=== PATIENT | female | born 1990 | race African-American/Black ===

== ENCOUNTER 2018-03-31 23:37 | Emergency (ER) | payer OTHER ==
[~2018-03-31] VITALS: Ht 180.3 cm; Wt 70.3 kg
[2018-03-31] MEDS ORDERED: VITAMINS (23:49)
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
[2018-04-01] MEDS ORDERED: IBUPROFEN600 MG ORAL (00:14)
[2018-04-01 00:35] VITALS: BP 124/70
[2018-04-01 00:38] VITALS: BP 124/70
--- NOTE | 2018-04-01 02:36 | Diagnostic Imaging Report ---
EXAM: XR Right Shoulder Complete, 2 or More Views CLINICAL HISTORY: Pain TECHNIQUE: Two or more views of the right shoulder. COMPARISON: No relevant prior studies available. FINDINGS: Bones/joints: Unremarkable. No acute fracture. No dislocation. Soft tissues: Unremarkable. IMPRESSION: Normal right shoulder x-rays.
== END 2018-04-01 00:38 | disposition home or self-care (01) ==
LOC: EMR 23:45
DX: S46.911A Strain of unspecified muscle, fascia and tendon at shoulder and upper arm level, right arm, initial encounter (principal); V43.52XA Car driver injured in collision with other type car in traffic accident, initial encounter; Y92.410 Unspecified street and highway as the place of occurrence of the external cause
CPT/HCPCS: 99283